=== PATIENT | female | born 1995 | race Caucasian/White ===

== ENCOUNTER 2017-05-15 11:25 | Emergency (ER) | payer OTHER ==
[~2017-05-15] VITALS: Ht 157.5 cm; Wt 68.8 kg
[~2017-05-15 11:25] MED LIST: BIRTH CONTROL PILLS; CIPROFLOXACN500 MG PO; FERR SULFATE325 MG PO; IBUPROFEN600 MG PO; LORTAB 7.57.5 MG PO; MOTRIN400 MG OR; ONDANSETRON4 MG PO; PRENATAL1 TA1 PO; ROBITUSS11 OR; ULTRAM50 M1 PO; ZITHROMAX250 MG OR; [UNRECOGNIZED DRUG - OTHER] OT
[2017-05-15] MEDS ORDERED: PHENERGAN25 MG RE (11:35)
[2017-05-15] MEDS ORDERED: ZOFRAN4 MG/TAB PO (11:35)
[2017-05-15 12:51] LABS: HEMATOCRIT 35.6 % (37.0-47.0); HEMOGLOBIN 12.2 g/dl (12.0-16.0); IMMATURE GRANULOCYTES 0.5 % (0.0-1.0); MEAN CORPUSCULAR HGB 28.1 pG CALC (26.0-32.0); MEAN CORPUSCULAR HGB CONC 34.3 g/L CALC (32.0-36.0); NEUT# 6.37 thou/uL (2.00-7.15); RED BLOOD COUNT 4.34 mill/uL (4.20-5.60); RED CELL DISTRI WIDTH 12.7 % (11.5-15.5)
[2017-05-15 13:25] LABS: ALBUMIN 4.2 g/dL (3.2-5.0); ALKALINE PHOSPHATASE 64 u/l (38-126); AMYLASE 52 u/l (30-110); ANION GAP 18 (6-22 (CALC)); BILIRUBIN, TOTAL 0.8 mg/dL (0.0-1.4); BUN 7 mg/dL (7-17); BUN/CREATININE RATIO 18 (12-20 (CALC)); CALCIUM 9.6 mg/dL (8.4-10.2); CARBON DIOXIDE 22 mmol/l (22-30); CHLORIDE 105 mmol/l (95-108); CREATININE 0.4 mg/dL (0.5-1.0); GFR > 60 ML/MIN (>=60 (CALC)); GFR FOR AFR.AMER. > 60 ML/MIN (>=60 (CALC)); GLUCOSE 80 mg/dL (65-105); LIPASE 74 u/l (23-300); POTASSIUM 3.9 mmol/l (3.5-5.1); SGOT/AST 32 u/l (14-36); SGPT/ALT 65 u/l (9-52); SODIUM 141 mmol/l (137-146); TOTAL PROTEIN 6.9 g/dL (6.3-8.2)
[2017-05-15 13:43] VITALS: BP 124/87
== END 2017-05-15 13:52 | disposition home or self-care (01) | DRG 781 ==
LOC: ED 11:25
PROVIDERS: Emergency Medicine
DX: O99.611 Diseases of the digestive system complicating pregnancy, first trimester (principal); K52.9 Noninfective gastroenteritis and colitis, unspecified; R50.9 Fever, unspecified; R10.13 Epigastric pain; R11.10 Vomiting, unspecified; Z3A.10 10 weeks gestation of pregnancy

== ENCOUNTER 2017-11-15 08:32 | Emergency (ER) | payer OTHER ==
[~2017-11-15] VITALS: Ht 157.5 cm; Wt 79.0 kg
[~2017-11-15 08:32] MED LIST changes: +PHENERGAN25 MG RE; +ZOFRAN4 MG/TAB PO
[2017-11-15 09:06] LABS: URINE BLOOD DIPSTICK NEGATIVE (NEGATIVE); URINE COLOR YELLOW; URINE GLUCOSE - DIPSTICK NEGATIVE (NEGATIVE); URINE KETONE NEGATIVE (NEGATIVE); URINE LEUK ESTERASE TRACE (NEGATIVE); URINE NITRITE - DIPSTICK NEGATIVE (Negative); URINE PROTEIN - DIPSTICK NEGATIVE (NEG-TRACE); URINE SPECIFIC GRAVITY 1.025
[2017-11-15 09:12] LABS: URINE BILIRUBIN - DIPSTICK SMALL (NEGATIVE); URINE CLARITY CLEAR
[2017-11-15 09:14] LABS: INFLUENZA A NONE DETECTED (NONE DETECT); INFLUENZA B NONE DETECTED (NONE DETECT)
[2017-11-15] MEDS ORDERED: CEPHALEXIN500 MG PO (09:31)
[2017-11-15 09:41] VITALS: BP 117/78
== END 2017-11-15 09:47 | disposition home or self-care (01) | DRG 781 ==
LOC: ED 08:32
PROVIDERS: Emergency Medicine
DX: O99.513 Diseases of the respiratory system complicating pregnancy, third trimester (principal); J06.9 Acute upper respiratory infection, unspecified; Z3A.37 37 weeks gestation of pregnancy